=== PATIENT | female | born 1965 | race Caucasian/White ===

== ENCOUNTER 2020-04-05 15:12 | Emergency (ER) | payer OTHER, SELFPAY ==
--- NOTE | 2020-04-05 15:16 | ED.GENADULT ---
HPI - General Adult General Chief complaint: Upper Respiratory Infection Stated complaint: pos sinus infection Time Seen by Provider: 04/05/20 15:31 Source: patient Mode of arrival: ambulatory Limitations: no limitations History of Present Illness HPI narrative: 54-year-old female patient presents to the [facility] with complaints of sinus symptoms and pain to the face for the past month. Patient states she first thought she might have been exposed to Covid and had a Covid test done about a month ago which came back negative. Patient states her symptoms have been intermittent and has gotten better at times and then continues to worsen. Patient states most of her symptoms today are on the left side and complains of frontal headache, pressure underneath the eyes, stuffy nose at times or runny nose. Patient states she has been taking Sudafed which does help her symptoms until it wears off. Denies any fevers that she is aware of. Denies any chest pain, shortness of breath or coughing. Denies any ear pain. Related Data Home Medications Medication Instructions Recorded Confirmed drospirenone-ethinyl estradiol tablet 04/05/20 escitalopram oxalate mg 04/05/20 Allergies Allergy/AdvReac Type Severity Reaction Status Date / Time No Known Allergies Allergy Verified 08/05/18 09:49 Review of Systems Review of Systems: Narrative: CONSTITUTIONAL: Denies fever, chills, or sweats. EYES: Denies visual changes, redness, or discharge. ENT: Positive rhinorrhea, congestion, denies sore throat, or otalgia. CARDIOVASCULAR: Denies chest pain, palpitations, or edema. RESPIRATORY: Denies cough or dyspnea. GASTROINTESTINAL: Denies abdominal pain, nausea, vomiting, or diarrhea. GENITOURINARY: Denies dysuria or hematuria. SKIN: Denies rash or itching. MUSCULOSKELETAL: Denies back pain, joint pain, or myalgia. NEUROLOGIC: Positive headache, denies numbness, or weakness. PSYCHIATRIC: Denies anxiety or depression. 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 There is no relevant family history pertinent to the presenting complaint. Exam Narrative: Exam Narrative: GENERAL: Well-appearing, well-nourished, and in no acute distress. HEAD: Normocephalic, atraumatic. Tenderness noted to the bilateral maxillary sinuses on palpation EYES: PERRLA and EOMI. ENT: Nares with erythema and edema noted bilaterally, no rhinorrhea or epistaxis. Mucous membranes moist. Posterior pharynx with no erythema, tonsil management, exudates or lesions present. Bilateral TMs are clear no erythema or foreign bodies to the canal. NECK: Supple. No lymphadenopathy CHEST: Clear to auscultation. No respiratory distress. HEART: Regular rate and rhythm. No murmur heard. Normal peripheral pulses. ABDOMEN: Soft, nontender, nondistended, normal active bowel sounds. EXTREMITIES: Normal range of motion. No edema. SKIN: Warm, dry, no rash. NEURO: No focal deficits. Alert and oriented x3. Course Vital Signs Vital signs: Vital Signs Temperature 36.2 C L 04/05/20 15:23 Pulse Rate 59 L 04/05/20 15:23 Respiratory Rate 16 04/05/20 15:23 Blood Pressure 124/72 04/05/20 15:23 Pulse Oximetry 99 04/05/20 15:23 Temperature 36.2 C L 04/05/20 15:31 Pulse Rate 59 L 04/05/20 15:31 Respiratory Rate 16 04/05/20 15:31 Blood Pressure 124/72
[2020-04-05 15:23] VITALS: BP 124/72; PULSE 59; RESP 16; TEMP 36.2; O2SAT 99
[2020-04-05 15:31] VITALS: BP 124/72; PULSE 59; RESP 16; TEMP 36.2; O2SAT 99
== END 2020-04-05 15:41 | disposition home or self-care (01) ==
PROVIDERS: Emergency Provider Nurse Practitioner Family; PCP Family Medicine
DX: J01.00 Acute maxillary sinusitis, unspecified (principal); I34.1 Nonrheumatic mitral (valve) prolapse; I10 Essential (primary) hypertension; M19.90 Unspecified osteoarthritis, unspecified site; F41.9 Anxiety disorder, unspecified; Z85.41 Personal history of malignant neoplasm of cervix uteri
CPT/HCPCS: 99213; G0463

== ENCOUNTER 2021-09-26 01:39 | Day surgery (SDC) | payer OTHER, SELFPAY ==
[2021-09-13 14:11] VITALS: BMI 20.8
[2021-09-26 09:39] VITALS: BP 119/88; PULSE 69; RESP 16; TEMP 36.6; O2SAT 98; BMI 21.1
[2021-09-26] MEDS: LACTATED RINGERS 1,000 ML 150 ML IV CONT (09:51)
--- NOTE | 2021-09-26 09:57 | WPDGICN ---
Assessment and Plan Assessment and plan (1) Encounter for screening colonoscopy: Code(s): Z12.11 - Encounter for screening for malignant neoplasm of colon Status: Acute Assessment and Plan: Patient presents today for screening colonoscopy. She appears to be at average risk for colon polyps. Further recommendations may be given after endoscopy. GI Consult Note Consult date/time: 09/26/21 09:57 HPI: Neisha Bocanegra is a 56 year old female Presents for screening colonoscopy. Patient's current weight appetite and bowel movements are normal. She denies abdominal pain. She has had no bleeding. Family history is noncontributory. 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 [place] cone, Left breast biopsy?benign Hypertension Mitral valve prolapse Surgical History Surgical History (Updated 04/05/20 @ 15:18 by ALEE Pena) Delivery by section Social History Social History Smoking status: Never smoker Alcohol intake: current Drinks per week: 4 Living arrangements: with family Spiritual care concerns: No Meds Home Medications and Allergies Home Medications Medication Instructions Recorded Confirmed Type escitalopram oxalate 10 mg PO DAILY 04/05/20 09/26/21 History calcium carbonate [Calcium 600] 1,200 mg PO DAILY 09/13/21 09/26/21 History multivit with min-folic acid 1 tablet PO DAILY 09/13/21 09/26/21 History [Adult One Daily Multivitamin] Allergies Allergy/AdvReac Type Severity Reaction Status Date / Time No Known Allergies Allergy Verified 09/26/21 09:38 Vital Signs Vital Signs - 24 hr 09/26/21 09:39 Temperature 98 F Pulse Rate 69 Respiratory Rate 16 Blood Pressure 119/88 Pulse Oximetry 98 Exam Narrative: Physical exam reveals patient to be alert. Vital signs stable. HEENT exam is unremarkable. Patient is anicteric. Lungs are clear to auscultation and percussion. Heart is without murmur or extra sounds. Abdominal exam bowel sounds are present soft nontender with no organomegaly. Digital external rectal exam is normal.
--- NOTE | 2021-09-26 10:11 | P.PNAN_ITS ---
Anes - Initial Pre Proc Eval Procedure: Operation Date: 09/26/21 10:30 Proposed Procedures p Screening Colonoscopy - Hemanth Dominguez MD Date/Time: 09/26/21 10:11 Surgeon: Hemanth Dominguez MD Pre Op Diagnosis: neoplasm screening Patient Data Age: 56 Gender: F Height: 1.78 m Weight: 66.7 kg Last Vital Signs Temp 98 F 09/26/21 09:39 Pulse 69 09/26/21 09:39 Resp 16 09/26/21 09:39 BP 119/88 09/26/21 09:39 Pulse Ox 98 09/26/21 09:39 Allergies Allergy/AdvReac Type Severity Reaction Status Date / Time No Known Allergies Allergy Verified 09/26/21 09:38 Home Medications Medication Instructions Recorded Confirmed Type escitalopram oxalate 10 mg PO DAILY 04/05/20 09/26/21 History calcium carbonate [Calcium 600] 1,200 mg PO DAILY 09/13/21 09/26/21 History multivit with min-folic acid 1 tablet PO DAILY 09/13/21 09/26/21 History [Adult One Daily Multivitamin] Patient hx anesthesia problems: none Family hx anesthesia problems: none Results Review: All pre-operative results and documents have been reviewed as part of the pre-operative evaluation. 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 [place], Left breast biopsy?benign Hypertension Mitral valve prolapse Surgical History Surgical History (Updated 04/05/20 @ 15:18 by ALEE Pena) Delivery by section Social History Social History Smoking status: Never smoker Alcohol intake: current Drinks per week: 4 Living arrangements: with family Spiritual care concerns: No Anes - Eval Final PreProcedure Day of Procedure 09/26/21 10:11 Patient weight: normal Heart: regular rate and rhythm Lungs: clear to auscultation Airway: Mallampati scale class II Neurological: alert and oriented Last oral intake: >/= 8 hours ASA classification: II Emergent: no Anesthetic plan: proceed Anesthesia type and monitoring: general GIVS and standard monitoring Results Review: All pre-operative results and documents have been reviewed as part of the pre-operative evaluation. Informed Consent: The patient's anesthetic plan and its attendant risks and benefits were discussed with the patient/family/POA. Questions were solicited and answers provided to the satisfaction of the patient/family/POA.
[2021-09-26 10:52] VITALS: BP 96/55; PULSE 57; RESP 16; O2SAT 99
[2021-09-26 11:02] VITALS: BP 105/68; PULSE 57; RESP 15; O2SAT 99
[2021-09-26 11:12] VITALS: BP 124/75; PULSE 51; RESP 15; O2SAT 100
== END 2021-09-26 11:18 | disposition home or self-care (01) ==
PROVIDERS: PCP Family Medicine; Visit Provider Internal Medicine Gastroenterology
PROC: 0DJD8ZZ Inspection of Lower Intestinal Tract, Via Natural or Artificial Opening Endoscopic (ICD-10-PCS; CPT 45378; principal; 2021-09-26 10:30)
DX: Z12.11 Encounter for screening for malignant neoplasm of colon (principal); K64.8 Other hemorrhoids
CPT/HCPCS: 45378; J2704; J7120

== ENCOUNTER 2022-03-01 07:54 | Outpatient (CLI) | payer OTHER, SELFPAY ==
--- NOTE | ~2022-03-01 | US_ITS ---
EXAMINATION: US abdomen limited DATE: 03/01/2022 08:39 INDICATION: Right upper quadrant pain TECHNIQUE: Multiple grayscale and Doppler ultrasound images of the abdomen were obtained. COMPARISON: None available FINDINGS: Bowel gas obscures visualization of the pancreas. The visualized portions of the pancreas a re unremarkable. The liver is normal with normal echogenicity and echotexture. No surface nodularity. Normal hepatopetal flow in the main portal vein. There is a 3 mm gallbladder polyp. The gallbladder is otherwise normal with no abnormal wall thickening, pericholecystic fluid or stones. The normal com mon bile duct measures 4 mm. There was no sonographic Donahue sign. IMPRESSION: 1. No sonographic correlate for the patient's symptoms. Reviewed, dictated and finalized at location A.
== END 2022-03-01 07:55 | disposition home or self-care (01) ==
LOC: ANHIMG 07:55
PROVIDERS: PCP Family Medicine; Visit Provider Family Medicine
DX: R10.11 Right upper quadrant pain (principal)
CPT/HCPCS: 76705

== ENCOUNTER 2022-05-02 11:50 | Day surgery (SDC) | payer OTHER, SELFPAY ==
[2022-04-25 13:26] VITALS: BMI 20.8
[2022-05-02 12:10] VITALS: BP 120/73; PULSE 57; RESP 20; TEMP 37; O2SAT 100
[2022-05-02] MEDS: LACTATED RINGERS 1,000 ML 150 ML IV CONT (12:27)
--- NOTE | 2022-05-02 12:32 | P.PNAN_ITS ---
Anes - Initial Pre Proc Eval Procedure: Operation Date: 05/02/22 13:30 Proposed Procedures p Esophagogastroduodenoscopy - Hemanth Dominguez MD Date/Time: 05/02/22 12:32 Surgeon: Hemanth Dominguez MD Pre Op Diagnosis: Abdominal Pain Patient Data Age: 56 Gender: F Height: 1.78 m Weight: 66 kg Last Vital Signs Temp 37.0 C 05/02/22 12:10 Pulse 57 L 05/02/22 12:10 Resp 20 05/02/22 12:10 BP 120/73 05/02/22 12:10 Pulse Ox 100 05/02/22 12:10 O2 Del Method Room Air 05/02/22 12:10 Allergies Allergy/AdvReac Type Severity Reaction Status Date / Time No Known Allergies Allergy Verified 05/02/22 12:15 Home Medications Medication Instructions Recorded Confirmed Type calcium carbonate 600 mg calcium 1,200 mg PO DAILY 09/13/21 05/02/22 History (1,500 mg) tablet (Calcium) multivitamin with minerals-folic 1 tablet PO DAILY 09/13/21 05/02/22 History acid 0.4 mg tablet escitalopram oxalate 10 mg tablet 10 mg PO DAILY 03/23/22 05/02/22 History (Lexapro) pantoprazole 40 mg tablet,delayed 40 mg PO QAM #30 tabs 04/12/22 05/02/22 Rx release (Protonix) Patient hx anesthesia problems: none Family hx anesthesia problems: none Results Review: All pre-operative results and documents have been reviewed as part of the pre- operative evaluation. 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 [place], Left breast biopsy?benign Hypertension Mitral valve prolapse Surgical History Surgical History Delivery by section H/O lateral meniscus repair of left knee Social History Social History Smoking status: Never smoker Alcohol intake: current Drinks per week: 4 Substance use: never Substance use type: does not use Living arrangements: with family Spiritual care concerns: No Anes - Eval Final PreProcedure Day of Procedure 05/02/22 12:32 Patient weight: normal Heart: regular rate and rhythm Neurological: alert and oriented Last oral intake: >/= 8 hours ASA classification: II Emergent: no Anesthetic plan: proceed Anesthesia type and monitoring: general GIVS and standard monitoring Results Review: All pre-operative results and documents have been reviewed as part of the pre- operative evaluation. Informed Consent: The patient's anesthetic plan and its attendant risks and benefits were discussed with the patient/family/POA. Questions were solicited and answers provided to the satisfaction of the patient/family/POA.
--- NOTE | 2022-05-02 13:24 | PM.HPGS ---
History of Present Illness History of Present Illness Consent: Risks, benefits, and alternatives have been discussed and questions answered. Patient agrees to proceed with procedure. Chief complaint: Abdominal Pain Narrative: Neisha Bocanegra is a 56 year old female Presents for EGD. Patient gives a history of intermittent right upper quadrant abdominal pain over several months time. She states these episodes occur intermittently. No specific precipitating factors are noted. Pain will be intense and cause her to double over. The pain will last for 2hours. Is not specifically related to eating. Patient most recent episode she went to the emergency room in [place]. In [place] apparently an ultrasound CT scan were performed and found to be unremarkable. Because these were unremarkable patient has been treated empirically for possible ulcer disease. Currently on pantoprazole 40mg p.o. daily over the last 1 month. She presents today for EGD. Patient's family history is noncontributory. Review of Systems Review of Systems: Review of systems noncontributory. 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 [place], Left breast biopsy?benign Hypertension Mitral valve prolapse Surgical History Surgical History Delivery by section H/O lateral meniscus repair of left knee Social History Social History Smoking status: Never smoker Alcohol intake: current Drinks per week: 4 Substance use: never Substance use type: does not use Living arrangements: with family Spiritual care concerns: No Meds Home Medications and Allergies Home Medications Medication Instructions Recorded Confirmed Type calcium carbonate 600 mg calcium 1,200 mg PO DAILY 09/13/21 05/02/22 History (1,500 mg) tablet (Calcium) multivitamin with minerals-folic 1 tablet PO DAILY 09/13/21 05/02/22 History acid 0.4 mg tablet escitalopram oxalate 10 mg tablet 10 mg PO DAILY 03/23/22 05/02/22 History (Lexapro) pantoprazole 40 mg tablet,delayed 40 mg PO QAM #30 tabs 04/12/22 05/02/22 Rx release (Protonix) Allergies Allergy/AdvReac Type Severity Reaction Status Date / Time No Known Allergies Allergy Verified 05/02/22 12:15 Vital Signs Vital Signs - 24 hr 05/02/22 12:10 Temperature 98.6 F Pulse Rate 57 L Respiratory Rate 20 Blood Pressure 120/73 Pulse Oximetry 100 Oxygen Delivery Room Air Exam Narrative: Physical exam reveals patient to be alert. Vital signs stable. HEENT exam is unremarkable. Patient is anicteric. Lungs are clear to auscultation and percussion. Heart without murmur. Abdomen bowel sounds present soft nontender with no organomegaly. Assessment and Plan Assessment and plan (1) RUQ abdominal pain: Code(s): R10.11 - Right upper quadrant pain Status: Acute Assessment and Plan: Patient presents for EGD. She has intermittent right upper quadrant pain. EGD will be performed to exclude any upper GI tract pathology. Consider HIDA scan if this is negative. Her symptoms sound very much like gallbladder disease episodes.
[2022-05-02 14:04] VITALS: BP 94/58; PULSE 55; RESP 20; O2SAT 97
[2022-05-02 14:14] VITALS: BP 106/72; PULSE 69; RESP 20; O2SAT 99
--- NOTE | 2022-05-02 14:17 | WPDANESPN ---
Anes - Prog Note Post-Op Date/Time: 05/02/22 14:17 Cardiovascular status: normal Respiratory status: normal Airway patency: baseline Mental status: baseline Post-Op hydration status: normal Vital Signs: Last Vital Signs Temp 37.0 C 05/02/22 12:10 Pulse 57 L 05/02/22 12:10 Resp 20 05/02/22 12:10 BP 120/73 05/02/22 12:10 Pulse Ox 100 05/02/22 12:10 O2 Del Method Room Air 05/02/22 12:10 Pain Score (VAS): 0/10 I/O: Intake & Output 05/01/22 05/02/22 05/02/22 23:59 07:59 15:59 Intake Total 200 Balance 200 Patient Feedback: Patient satisfied with anesthetic care.
[2022-05-02 14:24] VITALS: BP 124/78; PULSE 57; RESP 20; O2SAT 100
== END 2022-05-02 14:40 | disposition home or self-care (01) ==
PROVIDERS: PCP Family Medicine; Visit Provider Internal Medicine Gastroenterology
PROC: 0DJ08ZZ Inspection of Upper Intestinal Tract, Via Natural or Artificial Opening Endoscopic (ICD-10-PCS; CPT 43235; principal; 2022-05-02 13:30)
DX: R10.11 Right upper quadrant pain (principal)
CPT/HCPCS: 43239

== ENCOUNTER 2022-05-16 07:23 | Outpatient (CLI) | payer OTHER, SELFPAY ==
--- NOTE | ~2022-05-16 | NM_ITS ---
EXAMINATION: NM hepatobiliary wo pharm DATE: 05/16/2022 10:39 INDICATION: Abdominal pain. COMPARISON: Ultrasound 03/01/2022 TECHNIQUE: 5.3 mCi Tc-99m mebrofenin (Choletec) was administered intravenously. Scintigraphic images of the abdomen were obtained for one hour. Then, the patient drank 8 oz Ensure, and imaging was cont inued for 60 minutes. FINDINGS: There is normal clearance of radiotracer from the blood pool. There is homogeneous tracer u ptake by the liver. Activity progresses to the bowel and gallbladder. Gallbladder ejection fraction (GBEF) was 35%. Note that with this technique, normal GBEF >= 33%. IMPRESSION: 1. Normal hepatobiliary scintigraphy. Reviewed, dictated and finalized at location A. PREPARER
== END 2022-05-16 07:24 | disposition home or self-care (01) ==
PROVIDERS: PCP Family Medicine; Visit Provider Internal Medicine Gastroenterology
DX: R10.11 Right upper quadrant pain (principal)
CPT/HCPCS: 78226; A9537

== ENCOUNTER 2022-06-27 06:40 | Outpatient (CLI) | payer OTHER, SELFPAY ==
--- NOTE | ~2022-06-27 | CT_ITS ---
EXAMINATION: CT diagnostic chest wo con DATE: 06/27/2022 06:59 INDICATION: Pulmonary nodule TECHNIQUE: Computed tomography (CT) of the chest was performed without intravenous contrast. The dose -length product (DLP) was 60.48 mGy-cm. Automated exposure control and iterative reconstruction techn ique were employed. COMPARISON: 11/17/2016 FINDINGS: A 12 mm x 6 mm nodule of the right lower lobe measures 12 mm x 5 mm on the comparison exami [facility]. There is mild dependent atelectasis. Calcified pulmonary nodules are consistent with old gran ulomatous disease. No pathologically enlarged thoracic lymph nodes are identified. The heart size is normal. There is a 1.5 cm cyst of the liver. There is moderate thoracic spondylosis. IMPRESSION: 1. Stable right lower lobe nodule, most consistent with old granulomatous disease. Reviewed, dictated and finalized at location L. HALMIC ASSISTANT IMPRESSION: 1. Stable right lower lobe nodule, most consistent with old granulomatous disea se.
== END 2022-06-27 06:41 | disposition home or self-care (01) ==
LOC: ANHIMG 06:44
PROVIDERS: PCP Family Medicine; Visit Provider Nurse Practitioner
DX: R91.1 Solitary pulmonary nodule (principal)
CPT/HCPCS: 71250

== ENCOUNTER 2022-12-24 11:27 | Emergency (ER) | payer OTHER, SELFPAY ==
--- NOTE | 2022-12-24 11:45 | ED.URI ---
HPI - URI/Sore Throat General Chief Complaint: Upper Respiratory Infection Stated Complaint: sinus issue, not feeling well Time Seen by Provider: 12/24/22 11:57 Source: patient and RN notes reviewed Mode of arrival: ambulatory Limitations: no limitations History of Present Illness HPI Narrative: 57-year-old female presents with concern for sinus problems throughout the summer. She reports after a cruise earlier this summer she has been having sinus congestion, drainage, postnasal drainage, not feeling well. Reports worsened over the last week. Reports she has been taking Sudafed without much relief. She reports she started coughing yesterday. MD elicited complaint: nasal congestion and sinus pain Related Data Home Medications Medication Instructions Recorded Confirmed escitalopram oxalate 10 mg tablet 10 mg PO DAILY 03/23/22 12/24/22 (Lexapro) estradiol 0.01% (0.1 mg/gram) See Rx Instructions .Route .COMPLEX 12/24/22 12/24/22 vaginal cream Allergies Allergy/AdvReac Type Severity Reaction Status Date / Time No Known Allergies Allergy Verified 12/24/22 11:36 Review of Systems Review of Systems: CONSTITUTIONAL: Reports malaise, fatigue. Denies chills, sweats, or fever. EYES: Denies visual changes, redness, or discharge. ENT: Reports rhinorrhea, congestion, sinus pain. Denies otalgia and sore throat. CARDIOVASCULAR: Denies chest pain, palpitations, or edema. RESPIRATORY: Reports cough. Denies dyspnea. GASTROINTESTINAL: Denies abdominal pain, nausea, vomiting, diarrhea SKIN: Denies rash or itching. MUSCULOSKELETAL: Reports myalgia. NEUROLOGIC: Denies headache. 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 There is no relevant family history pertinent to the presenting complaint Exam Narrative: GENERAL: Nontoxic-appearing and in no acute distress. HEAD: Normocephalic EYES: PERRLA, conjunctivae clear ENT: Nares clear, turbinates edematous and erythematous. Mucous membranes moist. TM pearly kerr with dull light reflex bilaterally; no tragal tenderness. Oropharynx not erythematous without lesions. Tonsils not enlarged and without exudate, no drooling, no hoarseness, no trismus, uvula midline. NECK: Supple. No lymphadenopathy CHEST: Clear to auscultation, breath sounds equal. No wheezing, rhonchi, rales, or stridor. No respiratory distress, speaks in full sentences. HEART: Regular rate and rhythm. No murmur heard. SKIN: Warm, dry, no rash. NEURO: Alert and oriented x3. PSYCH: Normal mood and affect Course Course Emergency Course: Patient is aware of diagnosis, understands and agrees to treatment plan. Anticipatory guidance given. Patient agrees to follow-up as directed and is aware of reasons to seek care at the emergency department. Portions of this record may have been created with voice recognition software Level of Care: Express Care Visit Vital Signs Vital signs: Reviewed. MDM - URI/Sore Throat MDM Narrative Medical decision making narrative: Differential diagnosis considered: Hawk virus, strep pharyngitis, allergic rhin
[2022-12-24 11:48] VITALS: BP 115/72; PULSE 60; RESP 16; TEMP 36.3; O2SAT 99
== END 2022-12-24 12:10 | disposition home or self-care (01) ==
PROVIDERS: Emergency Provider Nurse Practitioner; PCP Family Medicine
DX: J01.90 Acute sinusitis, unspecified (principal); M19.90 Unspecified osteoarthritis, unspecified site; I10 Essential (primary) hypertension; I34.1 Nonrheumatic mitral (valve) prolapse; F41.9 Anxiety disorder, unspecified; Z85.41 Personal history of malignant neoplasm of cervix uteri
CPT/HCPCS: 99213; G0463

== ENCOUNTER 2023-05-09 10:54 | Emergency (ER) | payer OTHER, SELFPAY ==
[2023-05-09 11:09] VITALS: BP 111/71; PULSE 65; RESP 18; TEMP 36.5; O2SAT 98
--- NOTE | 2023-05-09 11:22 | ED.URI ---
HPI - URI/Sore Throat General Chief Complaint: Upper Respiratory Infection Stated Complaint: Cough Time Seen by Provider: 05/09/23 11:23 Source: patient and RN notes reviewed Mode of arrival: ambulatory Limitations: no limitations History of Present Illness HPI Narrative: 57-year-old female presents with concern for 3 week history of headache, sinus pressure, sinus pain, drainage down the throat, sore throat watery eyes. Reports she has been taking Sudafed and Mucinex without relief. She reports she is use sinus rinses with green drainage. MD elicited complaint: nasal congestion and sinus pain Related Data Home Medications Medication Instructions Recorded Confirmed escitalopram oxalate 10 mg tablet 10 mg PO DAILY 03/23/22 05/09/23 (Lexapro) estradiol 0.01% (0.1 mg/gram) See Rx Instructions .Route .COMPLEX 12/24/22 05/09/23 vaginal cream Allergies Allergy/AdvReac Type Severity Reaction Status Date / Time No Known Allergies Allergy Verified 05/09/23 11:00 Review of Systems Review of Systems: CONSTITUTIONAL: Denies malaise, chills, sweats, or fever. EYES: Denies visual changes, redness, or discharge. ENT: Reports rhinorrhea, congestion, sinus pain, otalgia and sore throat. CARDIOVASCULAR: Denies chest pain, palpitations, or edema. RESPIRATORY: Denies cough. Denies dyspnea. GASTROINTESTINAL: Denies abdominal pain, nausea, vomiting, diarrhea SKIN: Denies rash or itching. MUSCULOSKELETAL: Denies myalgia. NEUROLOGIC: Reports headache. 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 There is no relevant family history pertinent to the presenting complaint Exam Narrative: GENERAL: Well-appearing, well-nourished, and in no acute distress. HEAD: Normocephalic EYES: PERRLA, conjunctivae clear ENT: Nares clear. Mucous membranes moist. TM pearly kerr with dull light reflex bilaterally; no tragal tenderness. Oropharynx not erythematous without lesions. Tonsils not enlarged and without exudate, no drooling, no hoarseness, no trismus, uvula midline. NECK: Supple. No lymphadenopathy CHEST: Clear to auscultation, breath sounds equal. No wheezing, rhonchi, rales, or stridor. No respiratory distress, speaks in full sentences. HEART: Regular rate and rhythm. No murmur heard. SKIN: Warm, dry, no rash. NEURO: Alert and oriented x3. PSYCH: Normal mood and affect Course Course Emergency Course: Patient is aware of diagnosis, understands and agrees to treatment plan. Anticipatory guidance given. Patient agrees to follow-up as directed and is aware of reasons to seek care at the emergency department. Portions of this record may have been created with voice recognition software Level of Care: Express Care Visit Vital Signs Vital signs: Vital Signs Temperature 97.7 F 05/09/23 11:09 Pulse Rate 65 05/09/23 11:09 Respiratory Rate 18 05/09/23 11:09 Blood Pressure 111/71 05/09/23 11:09 Pulse Oximetry 98 05/09/23 11:09 Oxygen Delivery Room Air 05/09/23 11:09 Temperature 97.7 F 05/09/23 11:09 Pulse Rate 65 05/09/23 11:09 Respi
== END 2023-05-09 11:40 | disposition home or self-care (01) ==
PROVIDERS: Emergency Provider Nurse Practitioner; PCP Family Medicine
DX: J32.9 Chronic sinusitis, unspecified (principal); M19.90 Unspecified osteoarthritis, unspecified site; I10 Essential (primary) hypertension; I34.1 Nonrheumatic mitral (valve) prolapse; F41.9 Anxiety disorder, unspecified; Z85.41 Personal history of malignant neoplasm of cervix uteri
CPT/HCPCS: 99213; G0463

== ENCOUNTER 2023-09-07 13:17 | Outpatient (CLI) | payer OTHER, SELFPAY ==
--- NOTE | ~2023-09-07 | DEXA_ITS ---
Bone Density Report Name: BRANDY PAUL Age: 57 Sex: Female Ethnicity: White Date of : 1965 Indication: postmenopausal; screening for osteoporosis; anorexia or bulimia; Referring Provider: Thompson, Ciara Study: Bone densitometry was performed. 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 These spine BMD and T score and Z score measurements are not reflective of the patient's true general bone mineral density. Bone Density: Region BMD T-score Z-score Classification AP Spine (L1-L4) 1.436 3.5 4.7 Normal Femoral Neck (Left) 0.844 0.0 1.1 Normal Total Hip (Left) 0.886 -0.5 0.3 Normal Femoral Neck (Right) 0.794 -0.5 0.6 Normal Total Hip (Right) 0.930 -0.1 0.7 Normal Total Hip Mean 0.908 -0.3 0.5 Normal World Health Organization criteria for BMD impression classify patients as: Normal (T-score at or above -1.0), Osteopenia (T-score between -1.0 and -2.5), or Osteoporosis (T-score at or below -2.5). 10-year Fracture Risk: FRAX not reported because: All T-scores for Spine Total, Hip Total, Femoral Neck at or above -1.0 Clinical Information Provided by Patient: Has used the following medications: Vitamin D, Calcium Has the following medical conditions: Anorexia or Bulimia Patient maximum height was 69 Menopause Age: 56 Drinks caffeinated beverages Onset of menses at age 16 Number of children 3 Missed period for more than 6 months in a row Impression: The patient has normal bone mass. 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 These spine BMD and T score and Z score measurements are not reflective of the patient's true general bone mineral density. Discussion: BONE DENSITY IS ABOVE THE MINIMUM DESIRABLE LEVEL AT ALL SKELETAL SITES TESTED. This patient?s bone mineral density is above the minimum desirable level (T-score -1.0 or better) at all sites measured. The patient should follow a healthful lifestyle (good nutrition with adequate calcium and vitamin D, and appropriate weight-bearing exercise). Follow-Up: Consider repeating this study in 5 years or sooner if there is some new clinical indication. Reported by: EMERY on 09/07/2023 1:24:00 PM. Reviewed, dictated and finalized at location [facility]
== END 2023-09-07 13:18 ==
PROVIDERS: PCP Family Medicine; Visit Provider Nurse Practitioner
DX: Z13.820 Encounter for screening for osteoporosis (principal); Z78.0 Asymptomatic menopausal state
CPT/HCPCS: 77080

== ENCOUNTER 2024-12-28 12:25 | Emergency (ER) | payer OTHER, SELFPAY ==
[2024-12-28 12:34] VITALS: BP 132/79; PULSE 71; RESP 18; TEMP 36.6; O2SAT 100
--- NOTE | 2024-12-28 12:35 | ED.GENADULT ---
HPI - General Adult General Chief complaint: Skin/Abscess/Foreign Body Stated complaint: Rash Time Seen by Provider: 12/28/24 12:35 Source: patient Mode of arrival: ambulatory Limitations: no limitations History of Present Illness HPI narrative: 59-year-old female patient presents to the [facility] with complaints of a rash to the back of the left shoulder and the left arm. Patient states she was shopping with her daughter yesterday and states with Set her arms she was that she was having some pain. Patient states this morning to realize that she had a blister-like rash to the back of her shoulder and areas on her left arm. 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 Patient denies fevers body aches or chills. Denies any chest pain or shortness of breath. Related Data Home Medications ?Medication ?Instructions ?Recorded ?Confirmed ?Last Taken ?Type escitalopram oxalate 10 mg tablet 10 mg PO DAILY 03/23/22 05/09/23 1 Day Ago History (Lexapro) ~05/01/22 amoxicillin 500 mg capsule mg 12/28/24 Unknown History Allergies Allergy/AdvReac Type Severity Reaction Status Date / Time No Known Allergies Allergy Verified 12/28/24 12:50 Review of Systems Review of Systems: CONSTITUTIONAL: Denies fever, chills, or sweats. EYES: Denies visual changes, redness, or discharge. ENT: Denies rhinorrhea, congestion, sore throat, or otalgia. CARDIOVASCULAR: Denies chest pain, palpitations, or edema. RESPIRATORY: Denies cough or dyspnea. GASTROINTESTINAL: Denies abdominal pain, nausea, vomiting, or diarrhea. GENITOURINARY: Denies dysuria or hematuria. SKIN: Denies rash or itching. Patient has blister-like rash and pain to left arm and shoulder MUSCULOSKELETAL: Denies back pain, joint pain, or myalgia. NEUROLOGIC: Denies headache, numbness, or weakness. PSYCHIATRIC: Denies anxiety or depression. 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 There is no relevant family history pertinent to the presenting complaint. Exam Narrative: GENERAL: Well-appearing, well-nourished, and in no acute distress. HEAD: Normocephalic, atraumatic. EYES: PERRLA and EOMI. ENT: Nares clear, no rhinorrhea or epistaxis. Mucous membranes moist. NECK: Supple. No lymphadenopathy CHEST: Clear to auscultation. No respiratory distress. HEART: Regular rate and rhythm. No murmur heard. Normal peripheral pulses. ABDOMEN: Soft, nontender, nondistended, normal active bowel sounds. EXTREMITIES: Normal range of motion. No edema. SKIN: Warm, dry, no rash. Patient has a small cluster of a blister-like rash noted to the back of the left shoulder another blister like cluster rash noted to the Lambert the shoulder near the axilla area and another spot noted to the proximal elbow area on the dorsal side of the left arm no open wounds or drainage noted. NEURO: No focal deficits. Alert and oriented x3. Course Course Level of Care: Express Care Visit Vital Signs Vital signs: Vital Signs Temperature 36.6 C 12/28/24 12:34 Pulse Rate 71 12/28/24 12:34 Respiratory Rate 18 12/28/24 12:34 Blood Pressure 132/79 12/28/24 12:34 Pulse Oximetry 100 12/28/24 12:34 Oxygen Delivery Room Air 12/28/24 12:34 Temperature 36.6 C 12/28/24 12:34 Pulse Rate 71 12/28/24 12:34 Respiratory Rate 18 12/28/24 12:34 Blood Pressure 132/79 12/28/24 12:34 Pulse Oximetry 100 12/28/24 12:34 Oxygen Delivery Room Air 12/28/24 12:34 Vital signs reviewed. Medical Decision Making MDM Narrative Medical decision making narrative: Discussed with patient this does most likely appear to be a shingles outbreak. Discussed with patient we will put her on an antiviral to decrease the viral replication of the shingles. Discussed patient she can take Tylenol and ibuprofen for pain and would recommend some vitamins such as vitamin-C, vitamin-D and zinc to help boost the immune system to hopefully fight off the virus a little bit quicker. Patient verbalized understanding of this and denies any other questions or concerns at this time. Differential Diagnosis Differential Diagnosis: Differential diagnosis: Contact dermatitis, poison vern, poison sumac, psoriasis, eczema, allergic reaction, drug reaction, scabies, tinea syphilis, lung disease, viral exanthema, pityriasis, erythema multiforme. Vital Signs Vital Signs: Vital Signs Temperature 36.6 C 12/28/24 12:34 Pulse Rate 71 12/28/24 12:34 Respiratory Rate 18 12/28/24 12:34 Blood Pressure 132/79 12/28/24 12:34 Pulse Oximetry 100 12/28/24 12:34 Oxygen Delivery Room Air 12/28/24 12:34 Temperature 36.6 C 12/28/24 12:34 Pulse Rate 71 12/28/24 12:34 Respiratory Rate 18 12/28/24 12:34 Blood Pressure 132/79 12/28/24 12:34 Pulse Oximetry 100 12/28/24 12:34 Oxygen Delivery Room Air 12/28/24 12:34 Critical Care Time Critical Care Time Critical Care Time: No Discharge Plan Discharge Clinical Impression: Shingles rash Patient Disposition: Home Condition: Stable Instructions: Antibiotic Form, Shingles (ED) Additional Instructions: Take antiviral medication as directed. This may help decrease symptoms and healing time. This may also made decrease your risk of developing nerve pain. May take ibuprofen or Tylenol as needed for pain during the day. May take prescribed pain medication at night for pain. Keep the rash clean and dry. Cover rash with a hand edge or clothing. Do not use bandages that stick to your skin. The sticky part may irritate your scan and make a rash last longer. The virus can be passed to a person who has never had chickenpox. This Person may get chickenpox but not shingles. You may pass the virus to others as long as you have a rash. The virus is spread by direct contact with the fluid from the blisters. Usually cannot spread the virus once the blisters have dried up. Please follow-up with your primary care provider within the next 5-7 days. Contact your health care provider or go to the ER if: You feel weak or have a headache. You have a cough, chills, or if fever You have abdominal pain, nausea or vomiting You're rash becomes more itchy or painful You're rash spreads to other parts of the body You're pain worsens and does not go away even after taking the medicine You're neck is stiff or you have trouble moving You painful, red, warm skin around the blisters are the blisters drain pus. You have trouble moving her arms, legs or face. You have a seizure You have weakness in an arm or leg. You become confused or have difficulty speaking You have dizziness, severe headache, hearing or visual loss. Recommend to take some vitamins to help boost your immune system including vitamin C: 2000 mg in the morning and 2000 mg in the evening. Vitamin D 3-4000 IU daily Zinc 220 mg daily Patient Language: Bermudian Prescriptions: New acyclovir 800 mg tablet 800 mg PO .five times daily 7 Days Qty: 35 0RF No Action amoxicillin 500 mg capsule escitalopram oxalate [Lexapro] 10 mg tablet 10 mg PO DAILY Follow-up/Referrals: Amy Castillo MD [Primary Care Provider] - Time of Disposition: 12:54
== END 2024-12-28 13:03 | disposition home or self-care (01) ==
PROVIDERS: Emergency Provider Nurse Practitioner Family; PCP Family Medicine
DX: B02.9 Zoster without complications (principal); I10 Essential (primary) hypertension; I34.1 Nonrheumatic mitral (valve) prolapse; M19.90 Unspecified osteoarthritis, unspecified site; F41.9 Anxiety disorder, unspecified; Z85.41 Personal history of malignant neoplasm of cervix uteri
CPT/HCPCS: 99213; G0463

== ENCOUNTER 2025-05-12 16:14 | Emergency (ER) | payer OTHER, SELFPAY ==
--- NOTE | 2025-05-12 16:16 | ED.URI ---
HPI - URI/Sore Throat General Chief Complaint: Upper Respiratory Infection Stated Complaint: Headache/Sore Throat Time Seen by Provider: 05/12/25 16:16 Source: patient Mode of arrival: ambulatory Limitations: no limitations History of Present Illness HPI Narrative: Neisha is a 59-year-old female patient presenting to the clinic today with complaints of a headache, nasal congestion, sinus pressure, and sore throat for 3 weeks. She reports she was ill back on April 22 and her symptoms have not fully improved and she felt as though she got worse yesterday. Denies any chest pain or shortness of breath. No fevers, chills, body aches. Related Data Home Medications ?Medication ?Instructions ?Recorded ?Confirmed ?Last Taken ?Type escitalopram oxalate 10 mg tablet 10 mg PO DAILY 03/23/22 05/09/23 1 Day Ago History (Lexapro) ~05/01/22 chlorhexidine gluconate 0.12 % 05/12/25 Unknown History mouthwash Allergies Allergy/AdvReac Type Severity Reaction Status Date / Time No Known Allergies Allergy Verified 05/12/25 16:21 Review of Systems Review of Systems: Pertinent positives per HPI. Patient denies any fever, chills, rash, visual changes, dizziness, shortness of breath, chest pain, palpitations, nausea, vomiting, diarrhea, constipation, abdominal pain, or any urinary issues. 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 There is no relevant family history pertinent to the patient complaint. Exam Narrative: General: Well-developed, well nourished, in no apparent distress Head: Normocephalic, atraumatic Eyes: Pupils equally round and reactive to light bilaterally, EOM intact, sclera and conjunctive clear, no discharge, lids normal Ears: TMs intact and congested, ear canals clear, no drainage, grossly hearing normal. Nose: Nares patent, yellow nasal discharge, moderate inflammation, maxillary sinus tenderness. Mouth: Oral pharynx red without lesions or masses, good dentition, MMM. Postnasal drip Neck: Supple, trachea midline, no enlargement of anterior or posterior cervical nodes, no thyroid masses or goiter palpable. Cardio: Regular rate and rhythm, s1 and s2 normal, no murmur appreciated. Resp: Clear to auscultation bilaterally, no rhonchi, rales, wheezing or rubs Course Course Level of Care: Express Care Visit Vital Signs Vital signs: Vital Signs Temperature 36.1 C L 05/12/25 16:22 Pulse Rate 58 L 05/12/25 16:22 Respiratory Rate 18 05/12/25 16:22 Blood Pressure 135/92 H 05/12/25 16:22 Pulse Oximetry 99 05/12/25 16:22 Oxygen Delivery Room Air 05/12/25 16:22 Temperature 36.1 C L 05/12/25 16:22 Pulse Rate 58 L 05/12/25 16:22 Respiratory Rate 18 05/12/25 16:22 Blood Pressure 135/92 H 05/12/25 16:22 Pulse Oximetry 99 05/12/25 16:22 Oxygen Delivery Room Air 05/12/25 16:22 [facility] Narrative Medical decision making narrative: At the time of visit patient is resting comfortably on the exam table. Patient appears to be nontoxic. Complaints of a headache, sinus pressure, nasal congestion, and sore throat for 3 weeks. She reports she was ill back on April 22 and her symptoms have not fully improved and she felt as though she got worse yesterday. Denies any chest pain or shortness of breath. No fevers, chills, body aches. On exam patient has bilateral TMs intact and congested, yellow nasal drainage, moderate anterior turbinate inflammation, maxillary tenderness, oropharynx red with postnasal drip, lung sounds are clear, heart rates regular rate and rhythm. Plan: I suspect patient has acute bacterial rhinosinusitis/postnasal drip. Prescription for prednisone and Augmentin was sent to the pharmacy. Supportive measures were discussed with the patient and they voiced understanding discharge instructions and agrees to treatment plan. Return precautions reviewed Differential Diagnosis Differential Diagnosis: Differential diagnostic considerations for upper respiratory infection include upper respiratory infection, croup, otitis media, sinusitis, viral infection, bronchitis, influenza, pharyngitis, strep, uvulitis. Lab Data Labs: Lab Results 05/12/25 05/12/25 Range/Units 16:25 16:26 POC Influenza A Ag Negative (Negative) POC Influenza B Ag Negative (Negative) POC SARS CoV-2 Ag Negative (Negative) POC Grp A Strep Screen Negative (Negative) Discharge Plan Discharge Clinical Impression: Post-nasal drip Sinusitis Qualifiers: Sinusitis location: frontal Chronicity: acute Recurrence: non-recurrent Qualified Code(s): J01.10 - Acute frontal sinusitis, unspecified Patient Disposition: Home Condition: Stable Instructions: Antibiotic Form, Rhinosinusitis (ED), Postnasal Drip (DC) Additional Instructions: COVID, influenza, and strep test were all negative in the clinic today. Take Augmentin and prednisone as prescribed May take DayQuil/NyQuil for cold/flu symptoms Increase fluids and stay well hydrated May take Tylenol or motrin as directed on bottle for pain/fever May use Flonase 1 spray in each nare daily May take OTC antihistamines such as Zyrtec or Claritin daily as directed on bottle May apply Vicks vapor rub to chest to open sinuses Sinus rinses for congestion Cepacol spray, cough drops, throat lozenges, warm tea with honey/lemon, gargle salt water to soothe throat BRAT diet for diarrhea Clear liquids x 24 hours then advance as tolerated for nausea/vomiting Go to the ED if you develop a worsening in your condition- high fever not controlled by Tylenol or Motrin, dehydration, weakness, lethargy, shortness of breath, or chest pain. Follow up with your PCP in 3-5 days if symptoms persist. Patient Language: Moldovan Prescriptions: New prednisone 20 mg tablet 40 mg PO DAILY 5 Days Qty: 10 0RF amoxicillin-pot clavulanate 875-125 mg tablet 1 tablet PO Q12H 7 Days Qty: 14 0RF No Action chlorhexidine gluconate 0.12 % mouthwash escitalopram oxalate [Lexapro] 10 mg tablet 10 mg PO DAILY Follow-up/Referrals: Amy Castillo MD [Primary Care Provider, Family Practice] Time of Disposition: 16:49 Quality NIHSS Nursing Documentation ED NIHSS nursing documentation: reviewed/agree
[2025-05-12 16:22] VITALS: BP 135/92; PULSE 58; RESP 18; TEMP 36.1; O2SAT 99
[2025-05-12 16:39] LABS: EDSTREPNEGPOS1 Negative (Negative)
[2025-05-12 16:52] LABS: EDCOVIDSCREEN Negative (Negative); EDINFLUASCREEN Negative (Negative); EDINFLUBSCREEN Negative (Negative)
== END 2025-05-12 16:55 | disposition home or self-care (01) ==
PROVIDERS: Emergency Provider Nurse Practitioner Family; PCP Family Medicine
DX: J01.10 Acute frontal sinusitis, unspecified (principal); I10 Essential (primary) hypertension; Z20.822 Contact with and (suspected) exposure to COVID-19
CPT/HCPCS: 87081; 87426; 87804; 87880; 99213; G0463